=== PATIENT | female | born 1960 | race Caucasian/White ===

== ENCOUNTER 2021-05-08 22:46 | Observation (INO) ==
[2021-05-09] MEDS ORDERED: Acetaminophen 325 MG TABLET PO PRN (02:51)
[2021-05-09] MEDS ORDERED: Naloxone 0.4 MG/ML INJ IVP PRN (02:51)
[2021-05-09] MEDS ORDERED: Ondansetron 4 MG/2 ML VIAL IVP PRN (02:51)
[2021-05-09] MEDS ORDERED: Insulin Regular, Human 100 UNIT/ML IV PRN (03:04)
[2021-05-09] MEDS ORDERED: *HR* Dextrose 50 % in Water (Vial) 50 ML VIAL IVP PRN ×2 (03:04→10:08)
[2021-05-09] MEDS ORDERED: D5% in 0.45% NACL 1,000 ML IVC PRN (03:04)
[2021-05-09] MEDS ORDERED: D5% in 0.45% NACL w KCl 20 MEQ/1,000 ML MLS IVC PRN (03:04)
[2021-05-09] MEDS ORDERED: 0.45 % Sodium Chloride w/KCl 20 MEQ/1,000 ML MLS IVC PRN (03:04)
[2021-05-09] MEDS ORDERED: Perflutren Lipid Microsphere 1.3 ML in 0.9 % Sodium Chloride 8.7 ML IVP PRN (03:30)
[2021-05-09 03:53] LABS: Basophils % 0.2 %; Hematocrit 35.4 % (35.3-44.9); Hemoglobin 11.1 g/dL (11.5-15.4); Immature Granulocytes % 1.3 % (0-4); Lymphocytes # 1.1 K/mcL (0.6-4.6); Mean Corpuscular HGB Conc 31.4 g/dL (31.6-35.5); Mean Corpuscular Hemoglobin 25.3 pg (28.0-33.3); Mean Corpuscular Volume 80.8 fL (83.0-100.0); Mean Platelet Volume 10.9 fL (9.4-12.4); Monocytes # 0.7 K/mcL (0.0-1.3); Monocytes % 6.9 %; Neutrophils # 7.5 K/mcL (1.6-8.9); Platelet Count 266 K/mcL (140-400); Red Blood Count 4.38 M/mcL (3.82-4.97); Segmented Neutrophils % 79.6 %; White Blood Count 9.4 K/mcL (4.3-11.1)
[2021-05-09 03:58] LABS: VBG HCO3 22 mEq/L (21-27); VBG PCO2 39 mmHg (41-51); VBG PH 7.35 pH Units (7.32-7.42); VBG PO2 143 mmHg (25-50)
[2021-05-09 04:02] LABS: Estimated Average Glucose 364 mg/dl; Hemoglobin A1C 14.3 %
[2021-05-09 04:32] LABS: Alanine Aminotransferase 74 Units/L (7-52); Albumin/Globulin Ratio 1.6 (1.1-2.2); Alkaline Phosphatase 75 Units/L (34-104); Aspartate Amino Transferase 50 Units/L (13-39); BUN/Creatinine Ratio 24 (6-26); Bilirubin,Total 0.3 mg/dL (0.3-1.0); Blood Urea Nitrogen 21 mg/dL (6-20); Calcium 9.1 mg/dL (8.6-10.3); Carbon Dioxide 20 mEq/L (23-29); Chloride 106 mEq/L (98-107); Globulin 2.5 g/dL (2.4-3.5); Glucose 248 mg/dL (70-105); Magnesium 1.4 mg/dL (1.6-2.6); Osmolality,Calculated 293 (280-300); Phosphorous 2.2 mg/dL (2.7-4.5); Potassium 3.8 mEq/L (3.5-5.1); Sodium 136 mEq/L (136-145); Thyroid Stimulating Hormone 0.775 mcIU/mL (0.340-5.600); Total Protein 6.5 g/dL (6.4-8.9); Troponin I 0.36 ng/mL (< 0.04); eGFR For African Americans > 60 (> 60); eGFR For Non-African Americans > 60 (> 60)
[2021-05-09] MEDS ORDERED: *HR* Heparin 5,000 UNIT/ML VIAL IVP ONE (04:47)
[2021-05-09] MEDS ORDERED: *HR* Heparin 5,000 UNIT/ML VIAL IVP PRN ×2 (04:47)
[2021-05-09] MEDS: Heparin 25,000UNIT/250ML 1/2NS 25,000 UNIT/250 ML IV.SOLN IVC SCH (05:23)
[2021-05-09] MEDS: Insulin DETEMIR 100 UNIT/ML X5UNITS SUBQ SCH ×2 (05:31→22:21)
[2021-05-09] MEDS ORDERED: *HR* Enoxaparin 40 MG/0.4 ML SYRINGE SQ SCH (09:00)
[2021-05-09 09:09] LABS: Hematocrit 35.2 % (35.3-44.9)
[2021-05-09] MEDS: Aspirin Enteric Coated 81 MG Tablet PO SCH (09:54)
[2021-05-09] MEDS ORDERED: D5% in Water 1,000 ML IVC PRN (10:08)
[2021-05-09] MEDS ORDERED: Dextrose Gel 15 GM/37.5 ML TUBE PO PRN ×2 (10:08)
[2021-05-09] MEDS ORDERED: *HR* Heparin 10,000 UNIT/10 ML VIAL ONE (11:12)
[2021-05-09] MEDS ORDERED: ISOVUE-370 200 ML INFUS..BTL ONE ×2 (11:12→11:59)
[2021-05-09] MEDS ORDERED: Heparin 1,000 UNITS/500 mL 500 ML ONE (11:12)
[2021-05-09] MEDS ORDERED: Nitroglycerin 1,000 MCG/5 ML VIAL IV ONE (11:12)
[2021-05-09] MEDS ORDERED: 0.9 % Sodium Chloride 2,000 ML ONE (11:12)
[2021-05-09] MEDS ORDERED: *HR* FentaNYL (PF) 100 MCG/2 ML VIAL ONE (11:22)
[2021-05-09] MEDS ORDERED: *HR* Midazolam HCl 2 MG/2 ML VIAL ONE (11:22)
[2021-05-09] MEDS ORDERED: *HR* Ticagrelor 90 MG TABLET ONE (11:45)
[2021-05-09] MEDS: Insulin LISPRO 300 UNITS/3 ML VIAL SUBQ SCH ×2 (12:00→17:25)
[2021-05-09 14:16] LABS: Chol/HDL Ratio 7.2 (0-4.9)
[2021-05-09] MEDS ORDERED: Insulin LISPRO 300 UNITS/3 ML VIAL SUBQ SCH (22:15)
[2021-05-09] MEDS: *HR* Ticagrelor 90 MG TABLET PO SCH (22:22)
[2021-05-09] MEDS: 0.9 % Sodium Chloride 1,000 ML IVC SCH (23:25)
[2021-05-10] MEDS: 0.9 % Sodium Chloride 1,000 ML IVC SCH (03:52)
[2021-05-10] MEDS: Heparin 25,000UNIT/250ML 1/2NS 25,000 UNIT/250 ML IV.SOLN IVC SCH (03:53)
[2021-05-10 07:16] LABS: Basophils # 0.1 K/mcL (0.0-0.2); Basophils % 0.8 %; Eosinophils # 0.1 K/mcL (0.0-0.6); Eosinophils % 1.8 %; Hematocrit 39.1 % (35.3-44.9); Hemoglobin 12.1 g/dL (11.5-15.4); Lymphocytes % 25.7 %; Mean Corpuscular HGB Conc 30.9 g/dL (31.6-35.5); Mean Corpuscular Hemoglobin 25.4 pg (28.0-33.3); Mean Platelet Volume 10.9 fL (9.4-12.4); Monocytes # 0.6 K/mcL (0.0-1.3); Monocytes % 7.3 %; Neutrophils # 4.9 K/mcL (1.6-8.9); Platelet Count 281 K/mcL (140-400); Red Blood Count 4.77 M/mcL (3.82-4.97); Red Cell Distribution Width 14.5 % (11.5-14.5); Segmented Neutrophils % 62.4 %; White Blood Count 7.9 K/mcL (4.3-11.1)
[2021-05-10 07:30] LABS: BUN/Creatinine Ratio 14 (6-26); Blood Urea Nitrogen 10 mg/dL (6-20); Calcium 9.3 mg/dL (8.6-10.3); Carbon Dioxide 25 mEq/L (23-29); Chloride 108 mEq/L (98-107); Glucose 119 mg/dL (70-105); Osmolality,Calculated 290 (280-300); Potassium 4.2 mEq/L (3.5-5.1); Sodium 140 mEq/L (136-145); eGFR For African Americans > 60 (> 60); eGFR For Non-African Americans > 60 (> 60)
[2021-05-10 07:31] LABS: BUN/Creatinine Ratio 14 (6-26); Blood Urea Nitrogen 10 mg/dL (6-20); eGFR For African Americans > 60 (> 60); eGFR For Non-African Americans > 60 (> 60)
[2021-05-10] MEDS: Insulin LISPRO 300 UNITS/3 ML VIAL SUBQ SCH ×3 (08:16→16:42)
[2021-05-10] MEDS: Aspirin Enteric Coated 81 MG Tablet PO SCH (08:21)
[2021-05-10] MEDS: *HR* Ticagrelor 90 MG TABLET PO SCH (08:22)
[2021-05-10] MEDS ORDERED: Metoprolol XL (24 HR) Succ 25 MG TAB.ER.24H PO SCH (09:00)
[2021-05-10] MEDS ORDERED: lisinopriL 5 MG TABLET PO SCH (09:00)
[2021-05-10 15:44] VITALS: BP 97/57
== END 2021-05-10 17:47 | disposition home or self-care (01) ==
LOC: 2NNU → SUATTDRO 05-09 01:44
PROVIDERS: ADMIT Student in an Organized Health Care Education/Training Program; ATTEND Student in an Organized Health Care Education/Training Program

== ENCOUNTER 2021-12-07 19:51 | Inpatient (IN) ==
[2021-12-07] MEDS ORDERED: Naloxone 0.4 MG/ML INJ IVP PRN (23:52)
[2021-12-07] MEDS ORDERED: Acetaminophen 325 MG TABLET PO PRN (23:52)
[2021-12-07] MEDS ORDERED: Ondansetron 4 MG/2 ML VIAL IVP PRN (23:52)
[2021-12-08] MEDS ORDERED: *HR* Ticagrelor 90 MG TABLET PO ONE (02:23)
[2021-12-08] MEDS ORDERED: Dextrose Gel 15 GM/37.5 ML TUBE PO PRN ×2 (02:41)
[2021-12-08] MEDS ORDERED: D5% in Water 1,000 ML IVC PRN (02:41)
[2021-12-08] MEDS ORDERED: *HR* Dextrose 50 % in Water (Syg) 50 ML SYRINGE IVP PRN (02:41)
[2021-12-08] MEDS: Insulin LISPRO 300 UNITS/3 ML VIAL SUBQ SCH ×3 (06:17→21:37)
[2021-12-08 07:49] LABS: Hematocrit 33.9 % (35.3-44.9); Hemoglobin 10.6 g/dL (11.5-15.4); Mean Corpuscular HGB Conc 31.3 g/dL (31.6-35.5); Mean Corpuscular Hemoglobin 24.6 pg (28.0-33.3); Mean Corpuscular Volume 78.7 fL (83.0-100.0); Mean Platelet Volume 10.5 fL (9.4-12.4); Platelet Count 305 K/mcL (140-400); Red Blood Count 4.31 M/mcL (3.82-4.97); Red Cell Distribution Width 14.8 % (11.5-14.5); White Blood Count 7.2 K/mcL (4.3-11.1)
[2021-12-08 07:57] LABS: INR 1.1; Prothrombin Time 11.7 Seconds (9.4-12.1)
[2021-12-08 07:59] LABS: Activated Partial Thrombo Time 36.6 Seconds (26.0-36.0)
[2021-12-08] MEDS ORDERED: Regadenoson 0.4 MG/5 ML SYRINGE IVP ONE (08:00)
[2021-12-08 08:01] LABS: % Iron Saturation 5 % (15-50); Iron 29 mcg/dL (50-170); Transferrin 438 mg/dL (203-362)
[2021-12-08 08:11] LABS: Troponin I < 0.03 ng/mL (< 0.04)
[2021-12-08 08:20] LABS: Bilirubin,Urine Negative (Negative); Blood,Urine Negative (Negative); Clarity,Urine Clear (Clear); Color,Urine Colorless (Yellow); Glucose,Urine (UA) Normal (Normal); Ketones,Urine Negative (Negative); Leukocyte Esterase,Urine Negative (Negative); Nitrite,Urine Negative (Negative); Protein,Urine Negative (Neg-Trace); Specific Gravity,Urine 1.014 (1.010-1.025); Urobilinogen,Urine Normal (Normal)
[2021-12-08 08:20] LABS: Ferritin 8 ng/mL (10-120)
[2021-12-08 08:26] LABS: Folate 20.1 ng/mL (3.0-16.0)
[2021-12-08 09:58] LABS: HDL Cholesterol 32 mg/dL (40-59)
[2021-12-08] MEDS: Aspirin Enteric Coated 81 MG Tablet PO SCH (10:07)
[2021-12-08 10:28] LABS: BUN/Creatinine Ratio 23 (6-26); Blood Urea Nitrogen 19 mg/dL (6-20); Calcium 9.9 mg/dL (8.6-10.3); Carbon Dioxide 23 mEq/L (23-29); Chloride 106 mEq/L (98-107); Chol/HDL Ratio 3.6 (0-4.9); Cholesterol 114 mg/dL (< 200); Glucose 143 mg/dL (70-105); LDL Cholesterol,Calculated 47 mg/dL (< 100); Osmolality,Calculated 293 (280-300); Potassium 4.1 mEq/L (3.5-5.1); Sodium 139 mEq/L (136-145); Triglycerides 174 mg/dL (< 150); eGFR For African Americans > 60 (> 60); eGFR For Non-African Americans > 60 (> 60)
[2021-12-08] MEDS ORDERED: Perflutren Lipid Microsphere 1.3 ML in 0.9 % Sodium Chloride 8.7 ML IVP PRN (12:05)
[2021-12-08] MEDS: Metoprolol XL (24 HR) Succ 25 MG TAB.ER.24H PO SCH (18:14)
[2021-12-08] MEDS: Morphine Sulfate 2 MG/ML SYRINGE IVP PRN (21:13)
[2021-12-08] MEDS ORDERED: *HR* Metoprolol 5 MG/5 ML VIAL IVP ONE (21:28)
[2021-12-08] MEDS ORDERED: Nitroglycerin 0.4 MG TAB.SUBL SL PRN (21:29)
[2021-12-08] MEDS: *HR* Ticagrelor 90 MG TABLET PO SCH (21:38)
[2021-12-09] MEDS: Insulin LISPRO 300 UNITS/3 ML VIAL SUBQ SCH ×3 (00:31→12:54)
[2021-12-09 04:44] LABS: Hematocrit 33.7 % (35.3-44.9); Hemoglobin 10.2 g/dL (11.5-15.4); Mean Corpuscular HGB Conc 30.3 g/dL (31.6-35.5); Mean Corpuscular Hemoglobin 23.6 pg (28.0-33.3); Mean Platelet Volume 10.5 fL (9.4-12.4); Platelet Count 299 K/mcL (140-400); Red Blood Count 4.32 M/mcL (3.82-4.97); Red Cell Distribution Width 14.8 % (11.5-14.5); White Blood Count 6.7 K/mcL (4.3-11.1)
[2021-12-09 05:07] LABS: BUN/Creatinine Ratio 23 (6-26); Blood Urea Nitrogen 21 mg/dL (6-20); Calcium 9.5 mg/dL (8.6-10.3); Carbon Dioxide 23 mEq/L (23-29); Chloride 106 mEq/L (98-107); Glucose 166 mg/dL (70-105); Osmolality,Calculated 293 (280-300); Sodium 138 mEq/L (136-145); eGFR For African Americans > 60 (> 60); eGFR For Non-African Americans > 60 (> 60)
[2021-12-09] MEDS: Metoprolol XL (24 HR) Succ 25 MG TAB.ER.24H PO SCH (09:28)
[2021-12-09] MEDS: *HR* Ticagrelor 90 MG TABLET PO SCH (09:28)
[2021-12-09] MEDS: Aspirin Enteric Coated 81 MG Tablet PO SCH (09:29)
[2021-12-09] MEDS ORDERED: *HR* FentaNYL (PF) 100 MCG/2 ML VIAL ONE (10:41)
[2021-12-09] MEDS ORDERED: *HR* Midazolam HCl 2 MG/2 ML VIAL ONE (10:42)
[2021-12-09] MEDS ORDERED: Nitroglycerin 1,000 MCG/5 ML VIAL IV ONE (11:50)
[2021-12-09] MEDS ORDERED: 0.9 % Sodium Chloride 1,000 ML ONE (11:50)
[2021-12-09] MEDS ORDERED: Heparin 1,000 UNITS/500 mL 500 ML ONE (11:50)
[2021-12-09] MEDS ORDERED: ISOVUE-370 200 ML INFUS..BTL ONE (11:50)
[2021-12-09] MEDS ORDERED: *HR* Heparin 10,000 UNIT/10 ML VIAL ONE (11:50)
[2021-12-09] MEDS ORDERED: *HR* Heparin 5,000 UNIT/ML VIAL IVP ONE (12:13)
[2021-12-09] MEDS ORDERED: *HR* Heparin 5,000 UNIT/ML VIAL IVP PRN ×2 (12:13)
[2021-12-09] MEDS: Heparin 25,000UNIT/250ML 1/2NS 25,000 UNIT/250 ML IV.SOLN IVC SCH (13:19)
[2021-12-09 13:40] LABS: Hematocrit 35.5 % (35.3-44.9); Hemoglobin 10.7 g/dL (11.5-15.4); Mean Corpuscular HGB Conc 30.1 g/dL (31.6-35.5); Mean Corpuscular Hemoglobin 23.8 pg (28.0-33.3); Mean Corpuscular Volume 78.9 fL (83.0-100.0); Mean Platelet Volume 10.4 fL (9.4-12.4); Platelet Count 307 K/mcL (140-400); Red Cell Distribution Width 14.9 % (11.5-14.5)
[2021-12-09 13:48] LABS: Heparin anti-factor XA UFH 0.05 IU/mL (0.30-0.70); INR 1.1; Prothrombin Time 12.4 Seconds (9.4-12.1)
[2021-12-09] MEDS ORDERED: Insulin LISPRO 300 UNITS/3 ML VIAL SUBQ SCH ×2 (16:30→21:00)
[2021-12-09 17:17] LABS: Chol/HDL Ratio 3.7 (0-4.9)
[2021-12-09 19:16] LABS: Estimated Average Glucose 180 mg/dl; Hemoglobin A1C 7.9 %
[2021-12-09] MEDS: Morphine Sulfate 2 MG/ML SYRINGE IVP PRN (20:34)
[2021-12-10] MEDS ORDERED: Insulin LISPRO 300 UNITS/3 ML VIAL SUBQ SCH (07:30)
[2021-12-10] MEDS: Metoprolol XL (24 HR) Succ 25 MG TAB.ER.24H PO SCH (07:44)
[2021-12-10] MEDS: Aspirin Enteric Coated 81 MG Tablet PO SCH (07:45)
[2021-12-10] MEDS: Insulin LISPRO 300 UNITS/3 ML VIAL SUBQ SCH ×3 (12:18→19:47)
[2021-12-10] MEDS: Heparin 25,000UNIT/250ML 1/2NS 25,000 UNIT/250 ML IV.SOLN IVC SCH (19:48)
[2021-12-11 00:54] LABS: Basophils # 0.1 K/mcL (0.0-0.2); Basophils % 0.6 %; Eosinophils # 0.1 K/mcL (0.0-0.6); Eosinophils % 1.4 %; Hematocrit 32.8 % (35.3-44.9); Hemoglobin 9.7 g/dL (11.5-15.4); Immature Granulocytes % 0.9 % (0-4); Lymphocytes # 2.4 K/mcL (0.6-4.6); Mean Corpuscular HGB Conc 29.6 g/dL (31.6-35.5); Mean Corpuscular Hemoglobin 23.6 pg (28.0-33.3); Mean Corpuscular Volume 79.8 fL (83.0-100.0); Mean Platelet Volume 10.8 fL (9.4-12.4); Monocytes # 0.8 K/mcL (0.0-1.3); Monocytes % 9.2 %; Neutrophils # 5.3 K/mcL (1.6-8.9); Platelet Count 293 K/mcL (140-400); Red Blood Count 4.11 M/mcL (3.82-4.97); Red Cell Distribution Width 14.9 % (11.5-14.5); Segmented Neutrophils % 60.9 %; White Blood Count 8.7 K/mcL (4.3-11.1)
[2021-12-11 01:14] LABS: Prothrombin Time 10.9 Seconds (9.4-12.1)
[2021-12-11 02:25] LABS: Alanine Aminotransferase 13 Units/L (7-52); Alkaline Phosphatase 81 Units/L (34-104); Aspartate Amino Transferase 11 Units/L (13-39); BUN/Creatinine Ratio 25 (6-26); Bilirubin,Total 0.4 mg/dL (0.3-1.0); Blood Urea Nitrogen 24 mg/dL (6-20); Calcium 9.7 mg/dL (8.6-10.3); Carbon Dioxide 21 mEq/L (23-29); Chloride 102 mEq/L (98-107); Glucose 229 mg/dL (70-105); Magnesium 1.6 mg/dL (1.6-2.6); Osmolality,Calculated 291 (280-300); Potassium 4.2 mEq/L (3.5-5.1); Sodium 135 mEq/L (136-145); Total Protein 7.2 g/dL (6.4-8.9); eGFR For African Americans > 60 (> 60); eGFR For Non-African Americans > 60 (> 60)
[2021-12-11 03:52] LABS: Albumin 4.3 g/dL (3.5-5.7); Albumin/Globulin Ratio 1.5 (1.1-2.2); Globulin 2.9 g/dL (2.4-3.5)
[2021-12-11] MEDS: Aspirin Enteric Coated 81 MG Tablet PO SCH (08:11)
[2021-12-11] MEDS: Chlorhexidine Rinse 15 ML MOUTHWASH MM SCH ×2 (08:11→20:54)
[2021-12-11] MEDS: Metoprolol XL (24 HR) Succ 25 MG TAB.ER.24H PO SCH (08:11)
[2021-12-11] MEDS: Insulin LISPRO 300 UNITS/3 ML VIAL SUBQ SCH ×4 (08:15→20:55)
[2021-12-11] MEDS: polyethylene glycoL 3350 17 GM POWD.PACK PO SCH (09:55)
[2021-12-11] MEDS: Insulin DETEMIR 100 UNIT/ML X5UNITS SUBQ SCH ×2 (12:26→20:55)
[2021-12-11] MEDS: Heparin 25,000UNIT/250ML 1/2NS 25,000 UNIT/250 ML IV.SOLN IVC SCH (12:29)
[2021-12-11 12:54] LABS: Influenza A PCR Negative (Negative); Influenza B PCR Negative (Negative); Resp. Syncytial Virus PCR Negative (Negative)
[2021-12-11 13:04] LABS: SARS-CoV-2 by PCR (In House) Negative (Negative)
[2021-12-12] MEDS: Heparin 25,000UNIT/250ML 1/2NS 25,000 UNIT/250 ML IV.SOLN IVC SCH (04:01)
[2021-12-12] MEDS ORDERED: Aspirin 81 MG TAB.CHEW PO ONE (06:00)
[2021-12-12] MEDS ORDERED: Cardioplegic Solution w/ Potassium 5 MEQ TH ONE ×3 (06:00)
[2021-12-12] MEDS ORDERED: Heparin 15,000 UNIT in 0.9 % Sodium Chloride 500 ML IV ONE (06:00)
[2021-12-12] MEDS ORDERED: Norepinephrine 4 MG in 0.9 % Sodium Chloride 250 ML IVC PRN (06:00)
[2021-12-12] MEDS ORDERED: Cardioplegic Solution w/ Potassium 20 MEQ TH ONE (06:00)
[2021-12-12] MEDS ORDERED: *HR* FentaNYL (PF) 1,000 MCG/20 ML VIAL ONE (06:52)
[2021-12-12] MEDS ORDERED: *HR* Midazolam HCl 5 MG/5 ML VIAL IVP ONE (06:52)
[2021-12-12] MEDS ORDERED: *HR* Propofol 200 MG/20 ML VIAL IVP ONE (06:52)
[2021-12-12] MEDS ORDERED: *HR* Rocuronium Bromide 50 MG/5 ML VIAL ONE ×2 (06:53→09:41)
[2021-12-12] MEDS ORDERED: *HR* Magnesium Sulfate 1 GM/2 ML VIAL ONE (06:54)
[2021-12-12] MEDS ORDERED: Lidocaine 2% Syringe 100 MG/5 ML ONE (06:54)
[2021-12-12] MEDS ORDERED: Famotidine 20 MG/2 ML VIAL ONE (06:54)
[2021-12-12] MEDS ORDERED: Tranexamic Acid 1,000 MG/10 ML VIAL ONE (06:54)
[2021-12-12] MEDS ORDERED: CeFAZolin 2,000 MG/120 ML BAG IVPB ONE (07:00)
[2021-12-12 08:12] LABS: ABG Base Excess -5 mEq/L (-2 to 3); ABG Chloride 105 mEq/L (98-107); ABG Glucose 148 mg/dL (60-95); ABG HCO3 21 mEq/L (21-27); ABG Ionized Calcium 1.15 mmol/L (1.15-1.35); ABG Oxygen Saturation 100 % (95-98); ABG PCO2 39 mmHg (35-45); ABG PH 7.34 pH Units (7.32-7.45); ABG PO2 432 mmHg (85-104); ABG TCO2 22 mEq/L (20-26)
[2021-12-12] MEDS ORDERED: *HR* Phenylephrine 10 MG/ML VIAL IVC ONE (09:13)
[2021-12-12] MEDS ORDERED: *HR* Magnesium Sulfate 2 GM/50 ML PIGGYBACK IVPB ONE (09:13)
[2021-12-12] MEDS ORDERED: *HR* Heparin 10,000 UNIT/10 ML VIAL IR ONE (09:13)
[2021-12-12] MEDS ORDERED: Heparin 1,000 UNITS/500 mL IV.SOLN IR ONE (09:13)
[2021-12-12] MEDS ORDERED: Lidocaine 2% Syringe 100 MG/5 ML IVP ONE (09:13)
[2021-12-12] MEDS ORDERED: D5% in Water 250 ML IV BAG IV ONE (09:13)
[2021-12-12] MEDS ORDERED: Albumin Human 25% 25 GM/100 ML IV.SOLN IVPB ONE (09:13)
[2021-12-12] MEDS ORDERED: Sodium Bicarbonate 50 MEQ/50 ML VIAL IVC ONE (09:13)
[2021-12-12] MEDS ORDERED: Mannitol 25% vial 12.5 GM/50 ML VIAL IVPB ONE (09:13)
[2021-12-12 09:28] LABS: ABG Base Excess -3 mEq/L (-2 to 3); ABG Chloride 106 mEq/L (98-107); ABG Glucose 152 mg/dL (60-95); ABG HCO3 21 mEq/L (21-27); ABG Ionized Calcium 1.14 mmol/L (1.15-1.35); ABG Oxygen Saturation 100 % (95-98); ABG PCO2 33 mmHg (35-45); ABG PH 7.41 pH Units (7.32-7.45); ABG PO2 214 mmHg (85-104); ABG TCO2 22 mEq/L (20-26)
[2021-12-12] MEDS ORDERED: Albumin Human 5% 12.5 GM/250 ML IV.SOLN ONE (10:29)
[2021-12-12 10:30] LABS: ABG Base Excess 0 mEq/L (-2 to 3); ABG Chloride 102 mEq/L (98-107); ABG Glucose 182 mg/dL (60-95); ABG HCO3 24 mEq/L (21-27); ABG Ionized Calcium 1.31 mmol/L (1.15-1.35); ABG Oxygen Saturation 100 % (95-98); ABG PCO2 38 mmHg (35-45); ABG PH 7.42 pH Units (7.32-7.45); ABG PO2 258 mmHg (85-104); ABG TCO2 26 mEq/L (20-26)
[2021-12-12] MEDS ORDERED: Protamine Sulfate 250 MG/25 ML VIAL IVP ONE (10:33)
[2021-12-12 10:55] LABS: ABG Base Excess -1 mEq/L (-2 to 3); ABG Chloride 105 mEq/L (98-107); ABG Glucose 166 mg/dL (60-95); ABG HCO3 24 mEq/L (21-27); ABG Ionized Calcium 1.08 mmol/L (1.15-1.35); ABG Oxygen Saturation 97 % (95-98); ABG PCO2 41 mmHg (35-45); ABG PH 7.37 pH Units (7.32-7.45); ABG PO2 93 mmHg (85-104); ABG TCO2 25 mEq/L (20-26)
[2021-12-12] MEDS ORDERED: Calcium Gluconate 1,000 MG/10 ML VIAL ONE (10:56)
[2021-12-12] MEDS ORDERED: *HR* FentaNYL (PF) 100 MCG/2 ML VIAL IVP PRN (11:09)
[2021-12-12] MEDS ORDERED: Acetaminophen 650 MG RECTAL SUPP RC PRN ×2 (11:09→12:34)
[2021-12-12] MEDS ORDERED: Albumin Human 5% 12.5 GM/250 ML IV.SOLN IVPB PRN ×2 (11:09→12:34)
[2021-12-12] MEDS ORDERED: Calcium Gluconate 1gm/50mL 1 GM/50 ML BAG IVPB PRN ×2 (11:09→12:34)
[2021-12-12] MEDS ORDERED: *HR* OxyCODONE/APAP 5/325 TABLET PO PRN (11:09)
[2021-12-12] MEDS ORDERED: *HR* Dextrose 50 % in Water (Syg) 50 ML SYRINGE IVP PRN ×2 (11:09→12:34)
[2021-12-12] MEDS ORDERED: Potassium Chloride 40 MEQ/200 ML BAG IVPB PRN ×2 (11:09→12:34)
[2021-12-12] MEDS ORDERED: Insulin Regular, Human 100 UNIT/ML IV PRN ×2 (11:09→12:34)
[2021-12-12] MEDS ORDERED: Pantoprazole 40 MG VIAL IVP SCH (11:15)
[2021-12-12] MEDS ORDERED: niCARdipine 20 MG/200 ML MLS IVC SCH (11:15)
[2021-12-12] MEDS ORDERED: Norepinephrine 4 MG/254 ML IV.SOLN IVC SCH (11:15)
[2021-12-12] MEDS ORDERED: 0.9 % Sodium Chloride w KCl 20 MEQ/1,000 ML MLS IVC SCH (11:15)
[2021-12-12] MEDS: Norepinephrine 4 MG/254 ML IV.SOLN IVC SCH ×2 (11:50→19:11)
[2021-12-12] MEDS ORDERED: Metoclopramide 10 MG/2 ML VIAL IVP SCH (12:00)
[2021-12-12 12:06] LABS: ABG Base Excess -1 mEq/L (-2 to 3); ABG HCO3 23 mEq/L (21-27); ABG Oxygen Saturation 100 % (95-98); ABG PCO2 31 mmHg (35-45); ABG PH 7.47 pH Units (7.32-7.45); ABG PO2 313 mmHg (85-104); ABG TCO2 23 mEq/L (20-26); Blood Gas VT 500 cc
[2021-12-12] MEDS: polyethylene glycoL 3350 17 GM POWD.PACK PO SCH (12:09)
[2021-12-12] MEDS: *HR* FentaNYL (PF) 100 MCG/2 ML VIAL IVP PRN ×3 (12:20→20:16)
[2021-12-12 12:23] LABS: Basophils # 0.1 K/mcL (0.0-0.2); Basophils % 0.4 %; Eosinophils # 0.1 K/mcL (0.0-0.6); Eosinophils % 0.6 %; Hematocrit 36.2 % (35.3-44.9); Immature Granulocytes % 1.7 % (0-4); Lymphocytes # 1.5 K/mcL (0.6-4.6); Lymphocytes % 7.5 %; Mean Corpuscular HGB Conc 32.6 g/dL (31.6-35.5); Mean Corpuscular Hemoglobin 26.4 pg (28.0-33.3); Mean Platelet Volume 10.6 fL (9.4-12.4); Monocytes # 1.3 K/mcL (0.0-1.3); Monocytes % 6.5 %; Neutrophils # 16.2 K/mcL (1.6-8.9); Platelet Count 213 K/mcL (140-400); Red Blood Count 4.47 M/mcL (3.82-4.97); Red Cell Distribution Width 15.3 % (11.5-14.5); Segmented Neutrophils % 83.3 %
[2021-12-12 12:26] LABS: White Blood Count 19.4 K/mcL (4.3-11.1)
[2021-12-12 12:28] LABS: Hemoglobin 11.8 g/dL (11.5-15.4)
[2021-12-12 12:31] LABS: Heparin anti-factor XA UFH < 0.04 IU/mL (0.30-0.70); INR 1.3
[2021-12-12 12:34] LABS: Activated Partial Thrombo Time 29.4 Seconds (26.0-36.0)
[2021-12-12] MEDS ORDERED: Dextrose Gel 15 GM/37.5 ML TUBE PO PRN ×2 (12:34)
[2021-12-12] MEDS ORDERED: D5% in Water 1,000 ML IVC PRN (12:34)
[2021-12-12] MEDS ORDERED: Naloxone 0.4 MG/ML INJ IVP PRN (12:34)
[2021-12-12 12:39] LABS: Prothrombin Time 14.3 Seconds (9.4-12.1)
[2021-12-12 12:42] LABS: BUN/Creatinine Ratio 26 (6-26); Blood Urea Nitrogen 20 mg/dL (6-20); Calcium 8.7 mg/dL (8.6-10.3); Carbon Dioxide 22 mEq/L (23-29); Chloride 105 mEq/L (98-107); Glucose 185 mg/dL (70-105); Magnesium 2.5 mg/dL (1.6-2.6); Osmolality,Calculated 291 (280-300); Sodium 137 mEq/L (136-145); eGFR For African Americans > 60 (> 60); eGFR For Non-African Americans > 60 (> 60)
[2021-12-12] MEDS: 0.9 % Sodium Chloride w KCl 20 MEQ/1,000 ML MLS IVC SCH (13:15)
[2021-12-12 13:31] LABS: ABG Base Excess -3 mEq/L (-2 to 3); ABG Chloride 101 mEq/L (98-107); ABG Glucose 221 mg/dL (60-95); ABG HCO3 23 mEq/L (21-27); ABG Ionized Calcium 1.01 mmol/L (1.15-1.35); ABG PCO2 41 mmHg (35-45); ABG PH 7.35 pH Units (7.32-7.45); ABG PO2 > 630 mmHg (85-104); ABG TCO2 24 mEq/L (20-26)
[2021-12-12] MEDS: Pantoprazole 40 MG VIAL IVP SCH (13:31)
[2021-12-12] MEDS: niCARdipine 20 MG/200 ML MLS IVC SCH ×3 (13:31→19:11)
[2021-12-12] MEDS: Metoclopramide 10 MG/2 ML VIAL IVP SCH ×2 (13:33→18:11)
[2021-12-12] MEDS: Ondansetron 4 MG/2 ML VIAL IVP PRN (14:39)
[2021-12-12] MEDS ORDERED: CeFAZolin 2 GM/120 ML BAG IVPB SCH (16:00)
[2021-12-12] MEDS: CeFAZolin 2 GM/120 ML BAG IVPB SCH (16:08)
[2021-12-12 17:03] LABS: ABG Base Excess -4 mEq/L (-2 to 3); ABG HCO3 22 mEq/L (21-27); ABG Oxygen Saturation 98 % (95-98); ABG PCO2 41 mmHg (35-45); ABG PH 7.34 pH Units (7.32-7.45); ABG PO2 109 mmHg (85-104); ABG TCO2 23 mEq/L (20-26); Blood Gas Modality CPAP/PS; Blood Gas Pressure Support 5 cm H2O
[2021-12-12] MEDS: Aspirin Enteric Coated 81 MG Tablet PO SCH (19:12)
[2021-12-12] MEDS: Insulin LISPRO 300 UNITS/3 ML VIAL SUBQ SCH (19:12)
[2021-12-12] MEDS: Metoprolol XL (24 HR) Succ 25 MG TAB.ER.24H PO SCH (19:14)
[2021-12-12] MEDS ORDERED: Ondansetron 4 MG/2 ML VIAL IVP PRN (19:45)
[2021-12-12] MEDS: Chlorhexidine Rinse 15 ML MOUTHWASH MM SCH (20:45)
[2021-12-12] MEDS ORDERED: Chlorhexidine Rinse 15 ML MOUTHWASH MM SCH (21:00)
[2021-12-12] MEDS: *HR* OxyCODONE/APAP 5/325 TABLET PO PRN (22:28)
[2021-12-13] MEDS: CeFAZolin 2 GM/120 ML BAG IVPB SCH (00:02)
[2021-12-13] MEDS: Metoclopramide 10 MG/2 ML VIAL IVP SCH ×4 (00:02→17:21)
[2021-12-13] MEDS: *HR* OxyCODONE/APAP 5/325 TABLET PO PRN ×5 (02:39→21:00)
[2021-12-13] MEDS: niCARdipine 20 MG/200 ML MLS IVC SCH ×3 (03:05→07:25)
[2021-12-13] MEDS: Norepinephrine 4 MG/254 ML IV.SOLN IVC SCH (03:06)
[2021-12-13] MEDS: Ondansetron 4 MG/2 ML VIAL IVP PRN ×2 (03:39→11:58)
[2021-12-13 04:38] LABS: BUN/Creatinine Ratio 23 (6-26); Blood Urea Nitrogen 18 mg/dL (6-20); Calcium 8.3 mg/dL (8.6-10.3); Carbon Dioxide 23 mEq/L (23-29); Chloride 108 mEq/L (98-107); Glucose 133 mg/dL (70-105); Magnesium 1.8 mg/dL (1.6-2.6); Osmolality,Calculated 290 (280-300); Potassium 4.5 mEq/L (3.5-5.1); Sodium 138 mEq/L (136-145); eGFR For African Americans > 60 (> 60); eGFR For Non-African Americans > 60 (> 60)
[2021-12-13 04:49] LABS: Basophils # 0.1 K/mcL (0.0-0.2); Basophils % 0.4 %; Eosinophils % 0.1 %; Hematocrit 32.5 % (35.3-44.9); Hemoglobin 10.5 g/dL (11.5-15.4); Immature Granulocytes % 1.1 % (0-4); Lymphocytes # 0.7 K/mcL (0.6-4.6); Lymphocytes % 4.4 %; Mean Corpuscular HGB Conc 32.3 g/dL (31.6-35.5); Mean Corpuscular Volume 80.4 fL (83.0-100.0); Mean Platelet Volume 10.6 fL (9.4-12.4); Monocytes # 1.4 K/mcL (0.0-1.3); Neutrophils # 13.1 K/mcL (1.6-8.9); Nucleated Red Blood Cells 0.1 /100 WBC (0); Platelet Count 226 K/mcL (140-400); Red Blood Count 4.04 M/mcL (3.82-4.97); Red Cell Distribution Width 15.6 % (11.5-14.5); White Blood Count 15.4 K/mcL (4.3-11.1)
[2021-12-13 04:59] LABS: INR 1.1; Prothrombin Time 12.5 Seconds (9.4-12.1)
[2021-12-13 05:02] LABS: Activated Partial Thrombo Time 26.7 Seconds (26.0-36.0)
[2021-12-13] MEDS: *HR* FentaNYL (PF) 100 MCG/2 ML VIAL IVP PRN (05:08)
[2021-12-13] MEDS ORDERED: 0.9 % Sodium Chloride 500 ML ONE (05:20)
[2021-12-13] MEDS ORDERED: Norepinephrine 4 MG in 0.9 % Sodium Chloride 250 ML IVC PRN (07:45)
[2021-12-13] MEDS ORDERED: Cardioplegic Solution w/ Potassium 5 MEQ TH ONE ×3 (07:45)
[2021-12-13] MEDS ORDERED: Heparin 15,000 UNIT in 0.9 % Sodium Chloride 500 ML IV ONE (07:45)
[2021-12-13] MEDS ORDERED: Cardioplegic Solution w/ Potassium 20 MEQ TH ONE (07:45)
[2021-12-13] MEDS: Chlorhexidine Rinse 15 ML MOUTHWASH MM SCH ×2 (07:49→20:59)
[2021-12-13] MEDS: Pantoprazole 40 MG VIAL IVP SCH (07:59)
[2021-12-13] MEDS ORDERED: Aspirin Enteric Coated 81 MG Tablet PO SCH ×2 (09:00)
[2021-12-13] MEDS ORDERED: Furosemide 20 MG/2 ML VIAL IVP SCH ×2 (09:00)
[2021-12-13] MEDS: 0.9 % Sodium Chloride w KCl 20 MEQ/1,000 ML MLS IVC SCH (09:23)
[2021-12-13] MEDS ORDERED: D5% in Water 1,000 ML IVC PRN (10:58)
[2021-12-13] MEDS ORDERED: Dextrose Gel 15 GM/37.5 ML TUBE PO PRN ×4 (10:58)
[2021-12-13] MEDS ORDERED: Insulin Regular, Human 100 UNIT/ML IV PRN (10:58)
[2021-12-13] MEDS ORDERED: *HR* Dextrose 50 % in Water (Syg) 50 ML SYRINGE IVP PRN ×3 (10:58)
[2021-12-13] MEDS ORDERED: Naloxone 0.4 MG/ML INJ IVP PRN (10:58)
[2021-12-13] MEDS ORDERED: *HR* FentaNYL (PF) 100 MCG/2 ML VIAL IVP PRN (10:58)
[2021-12-13] MEDS: Insulin LISPRO 300 UNITS/3 ML VIAL SUBQ SCH ×3 (12:52→19:12)
[2021-12-13] MEDS: *HR* Heparin 5,000 UNIT/ML VIAL SQ SCH ×2 (12:54→17:21)
[2021-12-13] MEDS: Furosemide 20 MG/2 ML VIAL IVP SCH (20:59)
[2021-12-14] MEDS: Metoclopramide 10 MG/2 ML VIAL IVP SCH ×4 (00:28→18:18)
[2021-12-14] MEDS: *HR* OxyCODONE/APAP 5/325 TABLET PO PRN ×6 (01:00→22:35)
[2021-12-14] MEDS: *HR* Heparin 5,000 UNIT/ML VIAL SQ SCH ×2 (05:18→18:18)
[2021-12-14 05:49] LABS: Basophils % 0.3 %; Eosinophils % 0.3 %; Hematocrit 29.5 % (35.3-44.9); Hemoglobin 9.2 g/dL (11.5-15.4); Immature Granulocytes % 0.7 % (0-4); Lymphocytes # 1.2 K/mcL (0.6-4.6); Lymphocytes % 10.2 %; Mean Corpuscular HGB Conc 31.2 g/dL (31.6-35.5); Mean Corpuscular Hemoglobin 26.1 pg (28.0-33.3); Mean Corpuscular Volume 83.6 fL (83.0-100.0); Mean Platelet Volume 10.3 fL (9.4-12.4); Monocytes # 1.3 K/mcL (0.0-1.3); Monocytes % 11.1 %; Neutrophils # 9.2 K/mcL (1.6-8.9); Platelet Count 176 K/mcL (140-400); Red Blood Count 3.53 M/mcL (3.82-4.97); Red Cell Distribution Width 16.8 % (11.5-14.5); Segmented Neutrophils % 77.4 %; White Blood Count 11.8 K/mcL (4.3-11.1)
[2021-12-14 06:00] LABS: BUN/Creatinine Ratio 20 (6-26); Blood Urea Nitrogen 16 mg/dL (6-20); Calcium 8.9 mg/dL (8.6-10.3); Carbon Dioxide 28 mEq/L (23-29); Chloride 100 mEq/L (98-107); Glucose 204 mg/dL (70-105); Osmolality,Calculated 287 (280-300); Potassium 3.9 mEq/L (3.5-5.1); Sodium 135 mEq/L (136-145); eGFR For African Americans > 60 (> 60); eGFR For Non-African Americans > 60 (> 60)
[2021-12-14] MEDS: Furosemide 20 MG/2 ML VIAL IVP SCH ×2 (08:39→19:49)
[2021-12-14] MEDS: Aspirin Enteric Coated 81 MG Tablet PO SCH (08:39)
[2021-12-14] MEDS: Chlorhexidine Rinse 15 ML MOUTHWASH MM SCH ×2 (08:39→19:50)
[2021-12-14] MEDS: Insulin LISPRO 300 UNITS/3 ML VIAL SUBQ SCH ×4 (08:41→19:50)
[2021-12-14] MEDS: Pantoprazole 40 MG VIAL IVP SCH (08:50)
[2021-12-15] MEDS: Metoclopramide 10 MG/2 ML VIAL IVP SCH ×3 (00:29→12:07)
[2021-12-15] MEDS: *HR* OxyCODONE/APAP 5/325 TABLET PO PRN ×5 (04:18→23:23)
[2021-12-15] MEDS: *HR* Heparin 5,000 UNIT/ML VIAL SQ SCH ×2 (04:18→17:01)
[2021-12-15] MEDS: Pantoprazole 40 MG VIAL IVP SCH (08:13)
[2021-12-15] MEDS: Aspirin Enteric Coated 81 MG Tablet PO SCH (08:13)
[2021-12-15] MEDS: Chlorhexidine Rinse 15 ML MOUTHWASH MM SCH ×2 (08:14→20:47)
[2021-12-15] MEDS: Insulin LISPRO 300 UNITS/3 ML VIAL SUBQ SCH ×4 (08:14→20:48)
[2021-12-15] MEDS: Furosemide 20 MG/2 ML VIAL IVP SCH ×2 (08:14→20:46)
[2021-12-16] MEDS: *HR* OxyCODONE/APAP 5/325 TABLET PO PRN ×5 (04:21→21:18)
[2021-12-16] MEDS: *HR* Heparin 5,000 UNIT/ML VIAL SQ SCH ×2 (04:21→16:53)
[2021-12-16] MEDS: Chlorhexidine Rinse 15 ML MOUTHWASH MM SCH ×2 (08:21→21:20)
[2021-12-16] MEDS: Pantoprazole 40 MG VIAL IVP SCH (08:21)
[2021-12-16] MEDS: Insulin LISPRO 300 UNITS/3 ML VIAL SUBQ SCH ×4 (08:22→21:25)
[2021-12-16] MEDS: Aspirin Enteric Coated 81 MG Tablet PO SCH (08:22)
[2021-12-17] MEDS: *HR* OxyCODONE/APAP 5/325 TABLET PO PRN ×6 (01:08→21:24)
[2021-12-17] MEDS: *HR* Heparin 5,000 UNIT/ML VIAL SQ SCH ×2 (05:35→17:31)
[2021-12-17] MEDS: Ondansetron 4 MG/2 ML VIAL IVP PRN (08:53)
[2021-12-17] MEDS: Aspirin Enteric Coated 81 MG Tablet PO SCH (08:53)
[2021-12-17] MEDS: Chlorhexidine Rinse 15 ML MOUTHWASH MM SCH ×2 (08:53→21:23)
[2021-12-17] MEDS: Insulin LISPRO 300 UNITS/3 ML VIAL SUBQ SCH ×4 (08:54→21:25)
[2021-12-18] MEDS: *HR* OxyCODONE/APAP 5/325 TABLET PO PRN ×2 (01:22→05:38)
[2021-12-18] MEDS: *HR* Heparin 5,000 UNIT/ML VIAL SQ SCH (05:37)
[2021-12-18 08:00] VITALS: BP 107/73; PULSE 94; TEMP 98.2; O2SAT 91
[2021-12-18] MEDS: Chlorhexidine Rinse 15 ML MOUTHWASH MM SCH (08:27)
[2021-12-18] MEDS: Insulin LISPRO 300 UNITS/3 ML VIAL SUBQ SCH (08:27)
[2021-12-18] MEDS: Aspirin Enteric Coated 81 MG Tablet PO SCH (08:27)
== END 2021-12-18 09:14 | disposition home or self-care (01) | DRG 234 ==
LOC: 3BNU → SUATTDRO 12-10 13:28 → ICNU 12-12 13:30 → 2NNU 12-13 20:23
PROVIDERS: ADMIT Internal Medicine; ATTEND Registered Nurse